=== PATIENT | male | born 1985 | race Caucasian/White ===

== ENCOUNTER 2016-05-21 14:56 | Emergency (ER) | payer OTHER ==
[2016-05-21 16:04] LABS: HCT 40.3 % (42.0-52.0); HGB 13.7 g/dl (13.2-18.0); LYMPHOCYTE 30.2 % (15-48); MCH 30.2 pg (25.0-31.0); MONOCYTE 13.2 % (0-12); MPV 9.2 fL (6.0-9.5); NEUTROPHIL 54.6 % (41-80); PLT 313 K/uL (150-400); RBC 4.53 M/uL (4.70-6.00); RDW 13.2 % (11.5-14.0); WBC 6.1 K/uL (4.0-10.5)
[2016-05-21 16:19] LABS: POTASSIUM 3.9 mmol/L (3.5-5.1)
[2016-05-21 16:44] LABS: BILIRUBIN NEGATIVE (NEGATIVE); BLOOD TRACE-INTACT Ery/uL (NEGATIVE); CLARITY CLEAR (CLEAR); COLOR YELLOW (YELLOW); GLUCOSE (U) NORMAL (NORMAL); KETONE (U) NEGATIVE (NEGATIVE); LEUKOCYTES NEGATIVE Leu/uL (NEGATIVE); NITRITE NEGATIVE (NEGATIVE); PROTEIN NEGATIVE (NEGATIVE); UROBILINOGEN 0.2 mg/dL (0.2-1.0)
[2016-05-21 16:57] LABS: AMPHETAMINES NEGATIVE (NEGATIVE); BARBITURATES NEGATIVE (NEGATIVE); BENZODIAZEPINES NEGATIVE (NEGATIVE); COCAINE NEGATIVE (NEGATIVE); MARIJUANA (THC) NEGATIVE (NEGATIVE); METHADONE NEGATIVE (NEGATIVE); TRICYCLIC ANTIDEPRESSANT NEGATIVE (NEGATIVE)
[2016-05-21 17:02] LABS: SQUAMOUS EPITHELIAL CELLS RARE; URINARY RBC RARE
== END 2016-05-21 17:28 | disposition home or self-care (01) ==
LOC: FER 14:56
PROVIDERS: Nurse Practitioner Family
DX: R11.2 Nausea with vomiting, unspecified (principal); R19.7 Diarrhea, unspecified; R10.813 Right lower quadrant abdominal tenderness; M54.9 Dorsalgia, unspecified; F17.210 Nicotine dependence, cigarettes, uncomplicated
CPT/HCPCS: 36415; 80048; 80305; 81001; 85025; 99284